=== PATIENT | female | born 1955 | race Caucasian/White ===

== ENCOUNTER 2018-12-09 18:10 | Emergency (ER) | payer OTHER, SELFPAY ==
[2018-12-09 18:11] VITALS: BP 138/73; PULSE 81; RESP 17; TEMP 36.7; O2SAT 100; BMI 25.6
--- NOTE | 2018-12-09 18:21 | EKG12_ITS ---
Test Reason : ABDOMINAL PAIN Blood Pressure : / mmHG Vent. Rate : 075 BPM Atrial Rate : 075 BPM P-R Int : 132 ms QRS Dur : 094 ms QT Int : 430 ms P-R-T Axes : 069 048 057 degrees QTc Int : 480 ms Sinus rhythm with marked sinus arrhythmia Otherwise normal ECG Confirmed by KELSI PERLA, JOE ([id number]), purchasing expeditor ENRIQUE PIEDRA ([id number]) on 12/14/2018 8:41:10 AM Referred By: MARCIE Confirmed By:JOE DOLAN MD
[2018-12-09] MEDS: 0.9% Normal Saline 1,000 ML 1000 ML IV (18:30)
[2018-12-09] MEDS: Ondansetron 4 MG/2 ML Vial IV (18:30)
[2018-12-09 18:34] LABS: Absolute Lymphocyte Count 1.49 X10^3/ul (0.83-4.51); Absolute Neutrophil Count 13.7 X10^3/uL (2.0-7.7); Basophil# 0.03 X10^3/uL; Basophil% 0.2 % (0-1); Eosinophil# 0.06 X10^3/uL; Eosinophils% 0.4 % (0-5); Hematocrit 44.9 % (37-47); Hemoglobin 14.7 g/dl (12.0-15.0); Lymphocyte # 1.49 X10^3/ul (4.0); Lymphocyte % 9.3 % (19-41); Mean Corp Hgb Conc 32.7 g/gl (32-36); Mean Corpuscular Volume 91.6 fL (81-99); Monocyte# 0.76 X10^3/uL; Monocyte% 4.7 % (0-10); Neutrophil # 13.71 X10^3/uL (2.7-7.7); Neutrophil % 85.2 % (47-70); POSITIVE COUNT NO; POSITIVE DIFFERENTIAL NO; POSITIVE MORPHOLOGY NO; Platelet Count 347 K/mm3 (150-450); RBC Distribution Width CV 13.7 % (11.6-14.6); RBC Distribution Width SD 45.7 fl (35.1-43.9); White Blood Count 16.1 K/mm3 (4.4-11.0)
--- NOTE | 2018-12-09 18:37 | ED.VISSUMM ---
- ER Visit Summary Date of Service: 12/09/18 Chief Complaint: Abdominal pain History of Present Illness: The patient is a 63 F presenting with abdominal pain, nausea, vomiting. Patient states she began to feel ill around 2 PM this afternoon. She had 2 episodes of vomiting. She had no blood in her emesis. She has had loose stool today. No blood in her stool. She has mid abdominal pain. She states she ate chocolate before this started. She denies fever. Denies chest pain or shortness of breath. Denies other complaints. Physical Examination: Vitals are stable. Patient is afebrile. Alert no acute distress. HEENT exam is unremarkable. Neck is supple. Lungs are clear and equal bilaterally. Heart is regular rate and rhythm. Abdomen is soft epigastric tenderness with no rebound or guarding Extremities are unremarkable. Skin is warm and dry. Remainder of exam is unremarkable. Emergency Department Course and Treatment: Patient was given IV fluids, morphine, Zofran. EKG sinus rate of 75. CBC shows white count 16.1. Chemistries are unremarkable other than potassium 3.2, glucose 141. Direct bili 0.36, alk phos 162, ALT 146, AST 181. Lipase is normal. Troponin is negative. Right upper quadrant ultrasound is normal. On reevaluation, patient is feeling much improved. She is able to tolerate p.o. Repeat abdominal exam is soft and nontender with no rebound or guarding. She is requesting to go home. Discussed with Dr. Bradford covering for Dr. Medellin. Patient will follow-up in the office. Hepatitis panel was sent. She was advised to return to ED for any worsening complaints. Disposition: Discharge home Impression: Abdominal pain, elevated liver enzymes This note was generated with [employer] dictation software. It may contain incorrect words, spelling, and punctuation that were not noted in review of the chart prior to signing ED Disposition - Plan for ED Patient: Instructions: ED Abdominal Pain Unkn Cause Prescriptions: Ondansetron [Zofran Odt] 4 mg PO Q8H PRN PRN #10 tablet PRN Reason: Nausea Referrals: Rajesh Moyer MD [Primary Care Provider] -
[2018-12-09] MEDS: Morphine 4 MG/ML Syringe IV (18:50)
[2018-12-09 18:54] LABS: AST(SGOT) 181 U/L (15-37); Alanine Aminotransfer ALT/SGPT 146 U/L (13-56); Albumin, Serum 3.6 g/dL (3.2-5.0); Alkaline Phosphatase 162 U/L (45-117); Anion Gap 8 (5-15); BUN 12 mg/dL (7-18); BUN/Creat Ratio 16.2 RATIO (10-20); Bilirubin, Direct 0.36 mg/dL (0.00-0.30); Calcium,Total 8.8 mg/dL (8.5-10.1); Chloride 102 mmol/L (98-107); Creatinine, Serum 0.74 mg/dL (0.55-1.02); EST Glomerular Filtration Rate 84 mL/min (>60); Est Glom Filt Rate - Afr Amer 102 mL/min (>60); Estimated Creatinine Clearance 59.48 ml/min; Globulin 4.7 g/dL (2.2-4.2); Glucose 141 mg/dL (74-106); Lipase 179 U/L (73-393); Potassium 3.2 mmol/L (3.5-5.1); Protein, Total 8.3 g/dL (6.4-8.2); Sodium Level 139 mmol/L (136-145)
--- NOTE | 2018-12-09 18:55 | US_ITS ---
STUDY: ABDOMINAL ULTRASOUND - RIGHT UPPER QUADRANT REASON FOR VISIT: Female, 63 years old. Right upper quadrant pain. TECHNIQUE: Ultrasound evaluation of the right upper quadrant was performed with real-time and static vaz-scale imaging. TECHNICAL QUALITY: Adequate. COMPARISON: None. FINDINGS: Liver: The liver measures 13.1 cm. There is normal echogenicity of the liver. The bile ducts are within normal limits. There is hepatic color flow. The direction of portal flow is hepatopetal. There is no demonstrated mass lesion. Gallbladder: Normal distended gallbladder. The gallbladder wall measures 3 mm. There is a negative sonographic Fuentes's sign. There is no pericholecystic fluid. There are no gallstones. Common Bile Duct (C.B.D.): The common bile duct measures 6 mm. Pancreas: Normal size of the head, body and tail of the pancreas. Pancreatic duct is normal in caliber. Right Kidney: Normal size of the right kidney. The right kidney measures 10.5 x 4.4 x 4.8 cm. Normal renal cortex. The right cortex measures 1.2 cm. There is no demonstrated renal mass or cyst. There is no right hydronephrosis. US/Gallbladder IMPRESSION: Normal right upper quadrant ultrasound examination. Electronically Signed: Veronica Pryor MD at 20:54 EST Tel , Service support ,
[2018-12-09 21:33] VITALS: BP 119/64; PULSE 69; RESP 16; O2SAT 95
--- NOTE | 2018-12-09 21:35 | ED.DEP ---
ED Disposition - Plan for ED Patient: Instructions: ED Abdominal Pain Unkn Cause Prescriptions: Ondansetron [Zofran Odt] 4 mg PO Q8H PRN PRN #10 tablet PRN Reason: Nausea Referrals: Rajesh Moyer MD [Primary Care Provider] -
[2018-12-11 05:07] LABS: HEPATITIS B SURFACE AG Negative (Negative); Hepatitis A IgM Antibody Negative (Negative); Hepatitis B Core AB IgM Negative (Negative)
[2018-12-11 13:08] LABS: Hep C Antibodies <0.1 s/co ratio (0.0-0.9)
== END 2018-12-09 21:47 | disposition home or self-care (01) ==
LOC: ED 18:33
PROVIDERS: Emergency Provider Emergency Medicine; Family Provider Family Medicine; PCP Family Medicine
DX: R10.13 Epigastric pain (principal); R94.5 Abnormal results of liver function studies; I10 Essential (primary) hypertension; Z79.899 Other long term (current) drug therapy
CPT/HCPCS: 76705; 80048; 80074; 80076; 83690; 84484; 85025; 93005; 96361; 96374; 96375; 99283; J7030; A4216; J2405